=== PATIENT | female | born 1955 | race Caucasian/White ===

== ENCOUNTER → 2024-09-03 07:29 | Outpatient (REF) | payer OTHER, SELFPAY | LOC: RAD 07:29 | PROVIDERS: ATTENDING PHYSICIAN Internal Medicine Gastroenterology; FAMILY PHYSICIAN Family Medicine; REFERRING PHYSICIAN Student in an Organized Health Care Education/Training Program | DX: R68.81 Early satiety (principal); R10.11 Right upper quadrant pain | CPT/HCPCS: 78264; A9541 ==